=== PATIENT | female | born 1930 | race American Indian/Alaskan Native ===

== ENCOUNTER 2017-02-22 04:41 | Inpatient (IN) | payer MEDICARE ==
[2017-02-22 05:28] LABS: Basophils % (Auto) 0.7 % (0.0-1.8); Hematocrit 46.9 % (30.3-42.9); Hemoglobin 15.8 gm/dl (10.1-14.3); Mean Corpuscular HGB Conc 34 % (30-34); Mean Corpuscular Hemoglobin 30 pg (28-32); Mean Corpuscular Volume 90 fl (79-97); Platelet Count 259 K/mm3 (140-440); Red Cell Distribution Width 14.2 % (13.2-15.2); White Blood Count 4.4 K/mm3 (4.5-11.0)
[2017-02-22 06:03] LABS: Alanine Aminotransferase 8 units/L (7-56); Albumin 4.1 g/dL (3.9-5); Albumin/Globulin Ratio 1.2 %; Alkaline Phosphatase 71 units/L (35-129); Anion Gap 20 mmol/L; BUN/Creatinine Ratio 31.66; Blood Urea Nitrogen 19 mg/dL (7-17); Calcium 9.4 mg/dL (8.4-10.2); Carbon Dioxide 22 mmol/L (22-30); Chloride 100.3 mmol/L (98-107); Glucose 111 mg/dL (65-100); Potassium 3.5 mmol/L (3.6-5.0); Sodium 139 mmol/L (137-145); Total Protein 7.4 g/dL (6.3-8.2)
[2017-02-22 06:08] LABS: Urine Drugs of Abuse Note Disclamer
[2017-02-22 06:17] LABS: Bacteria,Urine 1+ /HPF (Negative); Bilirubin,Urine NEG (Negative); Blood,Urine SM (Negative); Ketones,Urine TR mg/dL (Negative); Leukocyte Esterase,Urine NEG (Negative); Mucus,Urine 2+ /HPF; Nitrite,Urine NEG (Negative); Urobilinogen,Urine < 2.0 mg/dL (<2.0)
--- NOTE | 2017-02-22 07:21 | Emergency Department Report ---
ED Altered Mental Status HPI - General Chief Complaint: Altered Mental Status Stated Complaint: AMS Time Seen by Provider: 02/22/17 07:17 Source: patient, EMS Mode of arrival: Stretcher Limitations: Altered Mental Status - History of Present Illness Initial Comments: The patient is quite delusional but pleasant enough during my encounter. She tells me a bit flippantly that she "trained the crypts and the bloods". She states he is from [place] which would make some sense in the delusional scheme. 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 She states she knows she is in [place]. She knows her name. She appears to be reasonably oriented for her age. She speaks quite coherently. The more you discuss her history the more delusional content he will likely receive. Nurses tell me that she was transported from home by EMS last night. They state they have no additional information. I do not have her trip sheet. Nurses state that she was not transported from a longterm. They also state that they have tried to contact the patient's family unsuccessfully. The patient offers no specific complaint. As per previous records the patient has aortic stenosis. She was admitted 12/16 for evaluation thereof by [facility]. I did not see a mention of dementia in her discharge summary. MD Complaint: confusion, other -: unknown Severity: moderate, severe Consistency of Symptoms: unknown Associated Symptoms: denies other symptoms - Related Data Home Medications Medication Instructions Recorded Confirmed Last Taken Unobtainable 02/22/17 02/22/17 Unknown Allergies Allergy/AdvReac Type Severity Reaction Status Date / Time No Known Allergies Allergy Verified 12/03/15 12:40 ED Review of Systems ROS: Stated complaint: AMS Other details as noted in HPI Constitutional: denies: chills, fever Eyes: denies: eye pain, eye discharge, vision change ENT: denies: ear pain, throat pain Respiratory: no symptoms reported. denies: shortness of breath Cardiovascular: denies: chest pain, palpitations Endocrine: no symptoms reported Gastrointestinal: denies: abdominal pain, nausea, diarrhea Genitourinary: denies: urgency, dysuria, discharge Musculoskeletal: denies: back pain, joint swelling, arthralgia Skin: denies: rash, lesions Neurological: denies: headache, weakness, paresthesias Psychiatric: denies: anxiety, depression Hematological/Lymphatic: denies: easy bleeding, easy bruising ED Past Medical Hx - Past Medical History Hx Hypertension: Yes Hx CVA: No Hx Heart Attack/AMI: No Hx Congestive Heart Failure: No Hx Diabetes: No Hx Deep Vein Thrombosis: No Hx Pulmonary Embolism: No Hx GERD: No Hx Liver Disease: No Hx Renal Disease: No Hx Sickle Cell Disease: No Hx Arthritis: Yes Hx Headaches / Migraines: No Hx Seizures: No Hx Kidney Stones: No Hx Psychiatric Treatment: No Hx Asthma: No Hx COPD: No Hx Tuberculosis: No Hx Dementia: Yes (Alzheimer's) Hx HIV: No - Surgical History Past Surgical History?: Yes Hx Coronary Stent: No Hx Open Heart Surgery: No Hx Pacemaker: No Hx Internal Defibrillator: No Hx Cholecystectomy: No Hx Appendectomy: Yes Hx Breast Surgery: No Additional Surgical History: eye surgery in [place] - Social History Smoking Status: Unknown if ever smoked - Medications Home Medications: Home Medications Medication Instructions Recorded Confirmed Last Taken Type Unobtainable 02/22/17 02/22/17 Unknown History ED Physical Exam - General Limitations: Altered Mental Status (delusional) General appearance: alert, in no apparent distress, other (well appearing) - Head Head exam: Present: atraumatic, normocephalic - Eye Eye exam: Present: normal appearance, PERRL, EOMI. Absent: scleral icterus - ENT ENT exam: Present: mucous membranes moist - Neck Neck exam: Present: normal inspection. Absent: tenderness, meningismus - Respiratory Respiratory exam: Present: normal lung sounds bilaterally. Absent: respiratory distress - Cardiovascular Cardiovascular Exam: Present: regular rate, normal rhythm. Absent: systolic murmur, diastolic murmur, rubs, gallop - GI/Abdominal GI/Abdominal exam: Present: soft, normal bowel sounds. Absent: distended, tenderness, guarding, rebound, rigid - Extremities Exam Extremities exam: Present: normal inspection - Back Exam Back exam: Present: normal inspection. Absent: CVA tenderness (R), CVA tenderness (L), paraspinal tenderness, vertebral tenderness - Neurological Exam Neurological exam: Present: alert, oriented X3, CN II-XII intact. Absent: motor sensory deficit - Psychiatric Psychiatric exam: Present: normal affect, normal mood - Skin Skin exam: Present: warm, dry, intact, normal color. Absent: rash - Assessment Assessment Interval: Baseline - Level of Consciousness 1a. Level of Consciousness: alert - LOC Questions 1b. LOC Questions: answers correctly - LOC Command 1c. LOC Commands: performs tasks correctly - Best Gaze 2. Best Gaze: normal - Visual 3. Visual: no visual loss - Facial Palsy 4. Facial Palsy: normal symmetrical movement - Motor Arm 5b. Motor Arm Right: no drift 5a. Motor Arm Left: no drift - Motor Leg 6a. Motor Leg Left: no drift 6b. Motor Leg Right: no drift - Limb Ataxia 7. Limb Ataxia: absent - Sensory 8. Sensory: normal - Best Language 9. Best Language: no aphasia - Dysarthria 10. Dysarthria: normal - Extinction and Inattention 11. Extinction/Inattention: no abnormality - Scoring Total Score: 0 Stroke Severity: No Stroke Symptoms ED Course Vital Signs 02/22/17 02/22/17 02/22/17 04:53 05:01 05:30 Temperature 98.2 F Pulse Rate 99 H 101 H Respiratory 18 18 18 Rate Blood Pressure 192/100 Blood Pressure 171/103 [Right] O2 Sat by Pulse 96 96 95 Oximetry 02/22/17 02/22/17 06:35 08:00 Temperature Pulse Rate 89 89 Respiratory 19 Rate Blood Pressure 194/109 Blood Pressure 158/95 [Right] O2 Sat by Pulse 96 Oximetry - Lab Data Result diagrams: 02/22/17 05:15 02/22/17 05:15 Lab Results 02/22/17 02/22/17 02/22/17 Range/Units 05:15 05:15 05:15 WBC 4.4 L (4.5-11.0) K/mm3 RBC 5.20 H (3.65-5.03) M/mm3 Hgb 15.8 H (10.1-14.3) gm/dl Hct 46.9 H (30.3-42.9) % MCV 90 (79-97) fl MCH 30 (28-32) pg MCHC 34 (30-34) % RDW 14.2 (13.2-15.2) % Plt Count 259 (140-440) K/mm3 Lymph % (Auto) 28.2 (13.4-35.0) % [place] % (Auto) 8.8 H (0.0-7.3) % Eos % (Auto) 1.0 (0.0-4.3) % Baso % (Auto) 0.7 (0.0-1.8) % Lymph # 1.2 (1.2-5.4) K/mm3 [place] # 0.4 (0.0-0.8) K/mm3 Eos # 0.0 (0.0-0.4) K/mm3 Baso # 0.0 (0.0-0.1) K/mm3 Seg Neutrophils % 61.3 (40.0-70.0) % Seg Neutrophils # 2.7 (1.8-7.7) K/mm3 Sodium 139 (137-145) mmol/L Potassium 3.5 L (3.6-5.0) mmol/L Chloride 100.3 (98-107) mmol/L Carbon Dioxide 22 (22-30) mmol/L Anion Gap 20 mmol/L BUN 19 H (7-17) mg/dL Creatinine 0.6 L (0.7-1.2) mg/dL Estimated GFR > 60 ml/min BUN/Creatinine Ratio 31.66 % Glucose 111 H (65-100) mg/dL Lactic Acid 1.40 (0.7-2.0) mmol/L Calcium 9.4 (8.4-10.2) mg/dL Magnesium 2.00 (1.7-2.3) mg/dL Total Bilirubin 0.70 (0.1-1.2) mg/dL AST 18 (5-40) units/L ALT 8 (7-56) units/L Alkaline Phosphatase 71 (35-129) units/L Total Protein 7.4 (6.3-8.2) g/dL Albumin 4.1 (3.9-5) g/dL Albumin/Globulin Ratio 1.2 % TSH (0.270-4.200) mlU/mL Urine Color (Yellow) Urine Turbidity (Clear) Urine pH (5.0-7.0) Ur Specific [place] (1.003-1.030) Urine Protein (Negative) mg/dL Urine Glucose (UA) (Negative) mg/dL Urine Ketones (Negative) mg/dL Urine Blood (Negative) Urine Nitrite (Negative) Urine Bilirubin (Negative) Urine Urobilinogen (<2.0) mg/dL Ur Leukocyte Esterase (Negative) Urine WBC (Auto) (0.0-6.0) /HPF Urine RBC (Auto) (0.0-6.0) /HPF U Epithel Cells (Auto) (0-13.0) /HPF Urine Bacteria (Auto) (Negative) /HPF Urine Mucus /HPF Salicylates (2.8-20.0) mg/dL Urine Opiates Screen Urine Methadone Screen Acetaminophen (10.0-30.0) ug/mL Ur Barbiturates Screen Ur Phencyclidine Scrn Ur Amphetamines Screen U Benzodiazepines Scrn Urine Cocaine Screen U Marijuana (THC) Screen Drugs of Abuse Note Plasma/Serum Alcohol (0-0.07) gm% 02/22/17 02/22/17 02/22/17 Range/Units 05:15 05:15 05:15 WBC (4.5-11.0) K/mm3 RBC (3.65-5.03) M/mm3 Hgb (10.1-14.3) gm/dl Hct (30.3-42.9) % MCV (79-97) fl MCH (28-32) pg MCHC (30-34) % RDW (13.2-15.2) % Plt Count (140-440) K/mm3 Lymph % (Auto) (13.4-35.0) % [place] % (Auto) (0.0-7.3) % Eos % (Auto) (0.0-4.3) % Baso % (Auto) (0.0-1.8) % Lymph # (1.2-5.4) K/mm3 [place] # (0.0-0.8) K/mm3 Eos # (0.0-0.4) K/mm3 Baso # (0.0-0.1) K/mm3 Seg Neutrophils % (40.0-70.0) % Seg Neutrophils # (1.8-7.7) K/mm3 Sodium (137-145) mmol/L Potassium (3.6-5.0) mmol/L Chloride (98-107) mmol/L Carbon Dioxide (22-30) mmol/L Anion Gap mmol/L BUN (7-17) mg/dL Creatinine (0.7-1.2) mg/dL Estimated GFR ml/min BUN/Creatinine Ratio % Glucose (65-100) mg/dL Lactic Acid (0.7-2.0) mmol/L Calcium (8.4-10.2) mg/dL Magnesium (1.7-2.3) mg/dL Total Bilirubin (0.1-1.2) mg/dL AST (5-40) units/L ALT (7-56) units/L Alkaline Phosphatase (35-129) units/L Total Protein (6.3-8.2) g/dL Albumin (3.9-5) g/dL Albumin/Globulin Ratio % TSH 0.420 (0.270-4.200) mlU/mL Urine Color (Yellow) Urine Turbidity (Clear) Urine pH (5.0-7.0) Ur Specific [place] (1.003-1.030) Urine Protein (Negative) mg/dL Urine Glucose (UA) (Negative) mg/dL Urine Ketones (Negative) mg/dL Urine Blood (Negative) Urine Nitrite (Negative) Urine Bilirubin (Negative) Urine Urobilinogen (<2.0) mg/dL Ur Leukocyte Esterase (Negative) Urine WBC (Auto) (0.0-6.0) /HPF Urine RBC (Auto) (0.0-6.0) /HPF U Epithel Cells (Auto) (0-13.0) /HPF Urine Bacteria (Auto) (Negative) /HPF Urine Mucus /HPF Salicylates < 0.3 L (2.8-20.0) mg/dL Urine Opiates Screen Urine Methadone Screen Acetaminophen < 15.0 (10.0-30.0) ug/mL Ur Barbiturates Screen Ur Phencyclidine Scrn Ur Amphetamines Screen U Benzodiazepines Scrn Urine Cocaine Screen U Marijuana (THC) Screen Drugs of Abuse Note Plasma/Serum Alcohol (0-0.07) gm% 02/22/17 02/22/17 02/22/17 Range/Units 05:15 06:00 06:00 WBC (4.5-11.0) K/mm3 RBC (3.65-5.03) M/mm3 Hgb (10.1-14.3) gm/dl Hct (30.3-42.9) % MCV (79-97) fl MCH (28-32) pg MCHC (30-34) % RDW (13.2-15.2) % Plt Count (140-440) K/mm3 Lymph % (Auto) (13.4-35.0) % [place] % (Auto) (0.0-7.3) % Eos % (Auto) (0.0-4.3) % Baso % (Auto) (0.0-1.8) % Lymph # (1.2-5.4) K/mm3 [place] # (0.0-0.8) K/mm3 Eos # (0.0-0.4) K/mm3 Baso # (0.0-0.1) K/mm3 Seg Neutrophils % (40.0-70.0) % Seg Neutrophils # (1.8-7.7) K/mm3 Sodium (137-145) mmol/L Potassium (3.6-5.0) mmol/L Chloride (98-107) mmol/L Carbon Dioxide (22-30) mmol/L Anion Gap mmol/L BUN (7-17) mg/dL Creatinine (0.7-1.2) mg/dL Estimated GFR ml/min BUN/Creatinine Ratio % Glucose (65-100) mg/dL Lactic Acid (0.7-2.0) mmol/L Calcium (8.4-10.2) mg/dL Magnesium (1.7-2.3) mg/dL Total Bilirubin (0.1-1.2) mg/dL AST (5-40) units/L ALT (7-56) units/L Alkaline Phosphatase (35-129) units/L Total Protein (6.3-8.2) g/dL Albumin (3.9-5) g/dL Albumin/Globulin Ratio % TSH (0.270-4.200) mlU/mL Urine Color Yellow (Yellow) Urine Turbidity Clear (Clear) Urine pH 5.0 (5.0-7.0) Ur Specific [place] 1.023 (1.003-1.030) Urine Protein 100 mg/dl (Negative) mg/dL Urine Glucose (UA) 50 (Negative) mg/dL Urine Ketones Tr (Negative) mg/dL Urine Blood Sm (Negative) Urine Nitrite Neg (Negative) Urine Bilirubin Neg (Negative) Urine Urobilinogen < 2.0 (<2.0) mg/dL Ur Leukocyte Esterase Neg (Negative) Urine WBC (Auto) 4.0 (0.0-6.0) /HPF Urine RBC (Auto) 3.0 (0.0-6.0) /HPF U Epithel Cells (Auto) < 1.0 (0-13.0) /HPF Urine Bacteria (Auto) 1+ (Negative) /HPF Urine Mucus 2+ /HPF Salicylates (2.8-20.0) mg/dL Urine Opiates Screen Presumptive negative Urine Methadone Screen Presumptive negative Acetaminophen (10.0-30.0) ug/mL Ur Barbiturates Screen Presumptive negative Ur Phencyclidine Scrn Presumptive negative Ur Amphetamines Screen Presumptive negative U Benzodiazepines Scrn Presumptive negative Urine Cocaine Screen Presumptive negative U Marijuana (THC) Screen Presumptive negative Drugs of Abuse Note Disclamer Plasma/Serum Alcohol < 0.01 (0-0.07) gm% - EKG Data -: EKG Interpreted by Me EKG shows normal: sinus rhythm Interpretation: LVH, other (moderately frequent PACs and PVCs no acute ischemic changes repolarization abnormality attributable to LVH) - Radiology Data interpreted by me: CT the head no acute process. Chest x-ray shows a new cardiac stent Critical care attestation.: If time is entered above; I have spent that time in minutes in the direct care of this critically ill patient, excluding procedure time. ED Disposition Clinical Impression: Uncontrolled hypertension, Ventricular ectopy Aortic stenosis Qualifiers: Cardiac valve disease etiology: etiology unspecified Qualified Code(s): I35.0 - Nonrheumatic aortic (valve) stenosis Altered mental status Qualifiers: Altered mental status type: unspecified Qualified Code(s): R41.82 - Altered mental status, unspecified Dementia Qualifiers: Dementia type: unspecified type Dementia behavioral disturbance: with behavioral disturbance Qualified Code(s): F03.91 - Unspecified dementia with behavioral disturbance Disposition: DC-09 OP ADMIT IP TO THIS HOSP Is pt being admited?: Yes Does the pt Need Aspirin: Yes Condition: Stable Instructions: Hypertension (ED) Referrals: PRIMARY CARE, [Primary Care Provider] - 3-5 Days Time of Disposition: 09:01
[2017-02-22] MEDS ORDERED: NORMODYNE IV ONE (07:26)
--- NOTE | 2017-02-22 08:10 | Cat Scan Report ---
CT HEAD WITHOUT CONTRAST: HISTORY: Altered mental status. Compared to 12/03/15. Mild chronic white matter changes are again noted. There is a 3.6 x 1.6 cm area of encephalomalacia in the left subfrontal region on image 13, series 2. This is also unchanged and probably represents a chronic ischemic insult or related to chronic trauma. There is no evidence for hemorrhage, mass or extra-axial fluid collection. Ventricular size remains within normal limits. The posterior fossa and contents are unremarkable. A single right posterior ethmoid air cell is nearly opacified. The remaining visualized sinuses and mastoid air cells are clear. IMPRESSION: Chronic findings as described above which are unchanged since 12/03/15. No acute intracranial process.
[2017-02-22] MEDS ORDERED: WATER FOR INJ (PF) 10 ML ONE (08:27)
[2017-02-22] MEDS ORDERED: GEODON IM ONE (08:27)
--- NOTE | 2017-02-22 08:43 | XRay Report ---
PORTABLE CHEST INDICATION: Hypertension. COMPARISON: 01/28/2010 FINDINGS: Portable, frontal chest radiograph demonstrates normal cardiomediastinal silhouette. Aortic atherosclerotic calcifications with subtle soft tissue density/thickness measuring up to 6 mm noted adjacent to the aortic knob, nonspecific though with a similar appearance in 2010. A new 5.5 x 2.5 cm stent overlies the heart and the spine in the midline, questionably along the outflow tract. Right hemidiaphragm again slightly elevated. Stable right axillary/chest wall surgical clips. Clear lungs without pleural effusions or CHF. Demineralized bones with various degenerative changes. EKG leads. Mild rightward tracheal deviation with possible left thyroid enlargement/mass. CONCLUSION: Interval midline possible cardiac stent with various other stable findings, as above. Please correlate clinically as also with relevant chest CT imaging, if available. Thank you for the opportunity to participate in this patient's care.
[2017-02-22] MEDS ORDERED: BABY ASPIRIN PO ONE (09:08)
--- NOTE | 2017-02-22 09:53 | Admit Criteria Form ---
Admission Criteria Documentation: HYPERTENSION Clinical Indications for Admission to Inpatient Care ( manzanita/check or initial the applicable condition/criteria) Admission is indicated for 1 or more of the following(1)(2)(3)(4)(5)(6)(7)(8)(9) (10): [ ]I. Hypertensive emergency, with evidence of acute and progressing target organ disease as indicated by 1 or more of the following: [ ]a) Hypertensive encephalopathy (e.g., confusion, altered mental status) (11) [ ]b) Cerebral infarction [ ]c) Intracranial hemorrhage [ ]d) Myocardial ischemia or infarction [ ]e) Heart failure (eg. Pulmonary edema) [ ]f) Aortic dissection [ ]g) Increased creatinine (new) with reduction of more than 50% in estimated glomerular filtration rate from baseline [ ]h) Seizure [ ]i) Papilledema [ ]j) Retinal hemorrhage [ ]k) Microangiopathic hemolytic anemia [ ]l) Other significant finding secondary to hypertension [ ]II. Adrenergic or sympathomimetic crisis (e.g., severe hypertension due to pheochromocytoma crisis, cocaine, phencyclindine, or amphetamine intoxication, or clonidine withdrawal) [X]III. Severe hypertension (SBP greater than 180 mmHg or DBP greater than 110 mmHg or greater than the 95th percentile for age, gender, and height in pediatric patients) that cannot be controlled (e.g., to SBP less than 160 mmHg and DBP less than 100 mmHg in adults) by treatment with oral medication in emergency department or observation care (12) Extended stay beyond goal length of staymay be needed for(21)(22): [ ]a) Persistent hypertensive encephalopathy [ ]b) Continuation of pulmonary edema [ ]c) Recurring or persistent severe hypertension [ ]d) Target organ damage (eg, angina, stroke, aortic dissection) The original [employer] content created by [employer] has been revised. The portions of the content which have been revised are identified through the use of italic text or in bold, and [employer] has neither reviewed nor approved the modified material. All other unmodified content is copyright [employer]. Please see references footnoted in the original [employer] edition 2016 Admission Criteria Met: Yes
[2017-02-22] MEDS ORDERED: TYLENOL PO PRN (10:00)
[2017-02-22] MEDS ORDERED: DULCOLAX PR PRN (10:00)
[2017-02-22] MEDS ORDERED: APRESOLINE IV PRN ×2 (10:00→12:11)
--- NOTE | 2017-02-22 10:04 | History and Physical Report ---
<LUDWIG AGUILERA - Last Filed: 02/22/17 13:29> History of Present Illness Date of examination: 02/22/17 Date of admission: 02/22/17 08:44 Chief complaint: Altered mental status History of present illness: Patient is a 86 year old -[place] African with past medical history hypertension , Alzheimer's, arthritis, and breast cancer who presents to the emergency department by EMS for altered mental status. Patient alert to person, delusional, hallucinating, therefor unable to obtain history. Per EMS her family called 911 for altered mental status, hallucinating and talking to self. I have tried to contact the patient's family or son without success. Patient history obtained from ER physician and charts. Past History Past Medical History: hypertension, other (Alzheimers, arthritis and breast cancer) Past Surgical History: appendectomy, Other (eye surgery) Medications and Allergies Allergies Allergy/AdvReac Type Severity Reaction Status Date / Time No Known Allergies Allergy Verified 12/03/15 12:40 Home Medications Medication Instructions Recorded Confirmed Last Taken Type Unobtainable 02/22/17 02/22/17 Unknown History Active Meds: Active Medications Acetaminophen (Tylenol) 650 mg PO Q4H PRN PRN Reason: Pain MILD(1-3)/Fever >100.5/PEREZ Bisacodyl (Dulcolax) 10 mg MO QDAY PRN PRN Reason: Constipation unrelieved by MOM Enoxaparin Sodium (Lovenox) 30 mg SUB-Q QDAY [facility] Hydralazine HCl (Apresoline) 10 mg IV Q4H PRN PRN Reason: SBP>160 Review of Systems ROS unobtainable: due to mental status (unable to assess ) Exam - Constitutional Vitals: Temp Pulse Resp BP Pulse Ox 98.2 F 89 19 194/109 96 02/22/17 04:53 02/22/17 08:00 02/22/17 06:35 02/22/17 08:00 02/22/17 06:35 General appearance: Present: other (altered mental status) - EENT Eyes: Present: PERRL - Neck Neck: Present: supple - Respiratory Respiratory effort: normal Respiratory: bilateral: CTA - Cardiovascular Heart rate: 92 Rhythm: regular Heart Sounds: Present: S1 & S2 - Extremities Extremities: no ischemia Peripheral Pulses: within normal limits - Abdominal General gastrointestinal: Present: soft, non-tender Female genitourinary: Present: deferred - Rectal Rectal Exam: deferred - Integumentary Integumentary: Present: clear, warm, dry - Musculoskeletal Musculoskeletal: strength equal bilaterally - Psychiatric Psychiatric: appropriate mood/affect - Allied Health Allied health notes reviewed: nursing Results - Labs CBC & Chem 7: 02/22/17 05:15 02/22/17 05:15 Labs: Laboratory Last Values WBC 4.4 K/mm3 (4.5-11.0) L 02/22/17 05:15 RBC 5.20 M/mm3 (3.65-5.03) H 02/22/17 05:15 Hgb 15.8 gm/dl (10.1-14.3) H 02/22/17 05:15 Hct 46.9 % (30.3-42.9) H 02/22/17 05:15 MCV 90 fl (79-97) 02/22/17 05:15 MCH 30 pg (28-32) 02/22/17 05:15 MCHC 34 % (30-34) 02/22/17 05:15 RDW 14.2 % (13.2-15.2) 02/22/17 05:15 Plt Count 259 K/mm3 (140-440) 02/22/17 05:15 Lymph % (Auto) 28.2 % (13.4-35.0) 02/22/17 05:15 Stark % (Auto) 8.8 % (0.0-7.3) H 02/22/17 05:15 Eos % (Auto) 1.0 % (0.0-4.3) 02/22/17 05:15 Baso % (Auto) 0.7 % (0.0-1.8) 02/22/17 05:15 Lymph # 1.2 K/mm3 (1.2-5.4) 02/22/17 05:15 Stark # 0.4 K/mm3 (0.0-0.8) 02/22/17 05:15 Eos # 0.0 K/mm3 (0.0-0.4) 02/22/17 05:15 Baso # 0.0 K/mm3 (0.0-0.1) 02/22/17 05:15 Seg Neutrophils % 61.3 % (40.0-70.0) 02/22/17 05:15 Seg Neutrophils # 2.7 K/mm3 (1.8-7.7) 02/22/17 05:15 Sodium 139 mmol/L (137-145) 02/22/17 05:15 Potassium 3.5 mmol/L (3.6-5.0) L 02/22/17 05:15 Chloride 100.3 mmol/L (98-107) 02/22/17 05:15 Carbon Dioxide 22 mmol/L (22-30) 02/22/17 05:15 Anion Gap 20 mmol/L 02/22/17 05:15 BUN 19 mg/dL (7-17) H 02/22/17 05:15 Creatinine 0.6 mg/dL (0.7-1.2) L 02/22/17 05:15 Estimated GFR > 60 ml/min 02/22/17 05:15 BUN/Creatinine Ratio 31.66 % 02/22/17 05:15 Glucose 111 mg/dL (65-100) H 02/22/17 05:15 Lactic Acid 1.40 mmol/L (0.7-2.0) 02/22/17 05:15 Calcium 9.4 mg/dL (8.4-10.2) 02/22/17 05:15 Magnesium 2.00 mg/dL (1.7-2.3) 02/22/17 05:15 Total Bilirubin 0.70 mg/dL (0.1-1.2) 02/22/17 05:15 AST 18 units/L (5-40) 02/22/17 05:15 ALT 8 units/L (7-56) 02/22/17 05:15 Alkaline Phosphatase 71 units/L (35-129) 02/22/17 05:15 Total Protein 7.4 g/dL (6.3-8.2) 02/22/17 05:15 Albumin 4.1 g/dL (3.9-5) 02/22/17 05:15 Albumin/Globulin Ratio 1.2 % 02/22/17 05:15 TSH 0.420 mlU/mL (0.270-4.200) 02/22/17 05:15 Urine Color Yellow (Yellow) 02/22/17 06:00 Urine Turbidity Clear (Clear) 02/22/17 06:00 Urine pH 5.0 (5.0-7.0) 02/22/17 06:00 Ur Specific [place] 1.023 (1.003-1.030) 02/22/17 06:00 Urine Protein 100 mg/dl mg/dL (Negative) 02/22/17 06:00 Urine Glucose (UA) 50 mg/dL (Negative) 02/22/17 06:00 Urine Ketones Tr mg/dL (Negative) 02/22/17 06:00 Urine Blood Sm (Negative) 02/22/17 06:00 Urine Nitrite Neg (Negative) 02/22/17 06:00 Urine Bilirubin Neg (Negative) 02/22/17 06:00 Urine Urobilinogen < 2.0 mg/dL (<2.0) 02/22/17 06:00 Ur Leukocyte Esterase Neg (Negative) 02/22/17 06:00 Urine WBC (Auto) 4.0 /HPF (0.0-6.0) 02/22/17 06:00 Urine RBC (Auto) 3.0 /HPF (0.0-6.0) 02/22/17 06:00 U Epithel Cells (Auto) < 1.0 /HPF (0-13.0) 02/22/17 06:00 Urine Bacteria (Auto) 1+ /HPF (Negative) 02/22/17 06:00 Urine Mucus 2+ /HPF 02/22/17 06:00 Salicylates < 0.3 mg/dL (2.8-20.0) L 02/22/17 05:15 Urine Opiates Screen Presumptive negative 02/22/17 06:00 Urine Methadone Screen Presumptive negative 02/22/17 06:00 Acetaminophen < 15.0 ug/mL (10.0-30.0) 02/22/17 05:15 Ur Barbiturates Screen Presumptive negative 02/22/17 06:00 Ur Phencyclidine Scrn Presumptive negative 02/22/17 06:00 Ur Amphetamines Screen Presumptive negative 02/22/17 06:00 U Benzodiazepines Scrn Presumptive negative 02/22/17 06:00 Urine Cocaine Screen Presumptive negative 02/22/17 06:00 U Marijuana (THC) Screen Presumptive negative 02/22/17 06:00 Drugs of Abuse Note Disclamer 02/22/17 06:00 Plasma/Serum Alcohol < 0.01 gm% (0-0.07) 02/22/17 05:15 Assessment and Plan Assessment and plan: Acute encephalopathy Etiology unknown Most likely due to progressively worsening Alzheimer's Normal CT of the head MRI of the brain ordered Accelerated hypertension Resume home antihypertensive medicine in addition started on carvedilol 12 mg by mouth twice a day Started on IV hydralazine for SBP>160 Closely monitor blood pressure Hypokalemia Replaced Closely monitor electrolytes SNF placement Case management consult DVT prophylaxis Lovenox Advance Directives: Yes (Full Code) Contraindication Mechanical VTE Prophylaxis: Treatment Not Indicated Plan of care discussed with patient/family: Yes <YOSVANY HESS - Last Filed: 02/22/17 18:56> History of Present Illness Date of admission: 02/22/17 08:44 Medications and Allergies Active Meds: Active Medications Acetaminophen (Tylenol) 650 mg PO Q4H PRN PRN Reason: Pain MILD(1-3)/Fever >100.5/PEREZ Bisacodyl (Dulcolax) 10 mg MO QDAY PRN PRN Reason: Constipation unrelieved by MOM Carvedilol (Coreg) 12.5 mg PO BID [facility] Last Admin: 02/22/17 13:57 Dose: 12.5 mg Enoxaparin Sodium (Lovenox) 30 mg SUB-Q QDAY [facility] Last Admin: 02/22/17 11:15 Dose: 30 mg Hydralazine HCl (Apresoline) 20 mg IV Q6H PRN PRN Reason: SBP>160 Sodium Chloride (Nacl 0.9% 1000 Ml) 1,000 mls @ 999 mls/hr IV BOLUS ONE Stop: 02/22/17 20:00 Lisinopril (Zestril) 20 mg PO QDAY [facility] Exam - Constitutional Vitals: Temp Pulse Resp BP Pulse Ox 98.3 F 103 H 18 155/90 97 02/22/17 10:12 02/22/17 13:57 02/22/17 10:12 02/22/17 13:57 02/22/17 10:12 General appearance: Present: no acute distress, well-nourished - Respiratory Respiratory: bilateral: CTA - Cardiovascular Rhythm: regular Heart Sounds: Present: S1 & S2 - Extremities Extremities: no ischemia, pulses intact, pulses symmetrical, No edema, normal temperature - Abdominal General gastrointestinal: Present: soft, non-tender - Integumentary Integumentary: Present: clear, warm Results - Labs CBC & Chem 7: 02/22/17 05:15 02/22/17 05:15 Labs: Laboratory Last Values WBC 4.4 K/mm3 (4.5-11.0) L 02/22/17 05:15 RBC 5.20 M/mm3 (3.65-5.03) H 02/22/17 05:15 Hgb 15.8 gm/dl (10.1-14.3) H 02/22/17 05:15 Hct 46.9 % (30.3-42.9) H 02/22/17 05:15 MCV 90 fl (79-97) 02/22/17 05:15 MCH 30 pg (28-32) 02/22/17 05:15 MCHC 34 % (30-34) 02/22/17 05:15 RDW 14.2 % (13.2-15.2) 02/22/17 05:15 Plt Count 259 K/mm3 (140-440) 02/22/17 05:15 Lymph % (Auto) 28.2 % (13.4-35.0) 02/22/17 05:15 Stark % (Auto) 8.8 % (0.0-7.3) H 02/22/17 05:15 Eos % (Auto) 1.0 % (0.0-4.3) 02/22/17 05:15 Baso % (Auto) 0.7 % (0.0-1.8) 02/22/17 05:15 Lymph # 1.2 K/mm3 (1.2-5.4) 02/22/17 05:15 Stark # 0.4 K/mm3 (0.0-0.8) 02/22/17 05:15 Eos # 0.0 K/mm3 (0.0-0.4) 02/22/17 05:15 Baso # 0.0 K/mm3 (0.0-0.1) 02/22/17 05:15 Seg Neutrophils % 61.3 % (40.0-70.0) 02/22/17 05:15 Seg Neutrophils # 2.7 K/mm3 (1.8-7.7) 02/22/17 05:15 POC ABG pH 7.421 (7.35-7.45) 02/22/17 18:07 POC ABG pCO2 37.4 (35-45) 02/22/17 18:07 POC ABG pO2 238 (80-105) H 02/22/17 18:07 POC ABG HCO3 24.4 02/22/17 18:07 POC ABG Total CO2 25 02/22/17 18:07 POC ABG O2 Sat 100 02/22/17 18:07 POC ABG Base Excess 0 02/22/17 18:07 FiO2 50 % 02/22/17 18:07 Sodium 139 mmol/L (137-145) 02/22/17 05:15 Potassium 3.5 mmol/L (3.6-5.0) L 02/22/17 05:15 Chloride 100.3 mmol/L (98-107) 02/22/17 05:15 Carbon Dioxide 22 mmol/L (22-30) 02/22/17 05:15 Anion Gap 20 mmol/L 02/22/17 05:15 BUN 19 mg/dL (7-17) H 02/22/17 05:15 Creatinine 0.6 mg/dL (0.7-1.2) L 02/22/17 05:15 Estimated GFR > 60 ml/min 02/22/17 05:15 BUN/Creatinine Ratio 31.66 % 02/22/17 05:15 Glucose 111 mg/dL (65-100) H 02/22/17 05:15 POC Glucose 129 (70-105) H 02/22/17 17:57 Lactic Acid 1.40 mmol/L (0.7-2.0) 02/22/17 05:15 Calcium 9.4 mg/dL (8.4-10.2) 02/22/17 05:15 Magnesium 2.00 mg/dL (1.7-2.3) 02/22/17 05:15 Total Bilirubin 0.70 mg/dL (0.1-1.2) 02/22/17 05:15 AST 18 units/L (5-40) 02/22/17 05:15 ALT 8 units/L (7-56) 02/22/17 05:15 Alkaline Phosphatase 71 units/L (35-129) 02/22/17 05:15 Total Protein 7.4 g/dL (6.3-8.2) 02/22/17 05:15 Albumin 4.1 g/dL (3.9-5) 02/22/17 05:15 Albumin/Globulin Ratio 1.2 % 02/22/17 05:15 TSH 0.420 mlU/mL (0.270-4.200) 02/22/17 05:15 Urine Color Yellow (Yellow) 02/22/17 06:00 Urine Turbidity Clear (Clear) 02/22/17 06:00 Urine pH 5.0 (5.0-7.0) 02/22/17 06:00 Ur Specific [place] 1.023 (1.003-1.030) 02/22/17 06:00 Urine Protein 100 mg/dl mg/dL (Negative) 02/22/17 06:00 Urine Glucose (UA) 50 mg/dL (Negative) 02/22/17 06:00 Urine Ketones Tr mg/dL (Negative) 02/22/17 06:00 Urine Blood Sm (Negative) 02/22/17 06:00 Urine Nitrite Neg (Negative) 02/22/17 06:00 Urine Bilirubin Neg (Negative) 02/22/17 06:00 Urine Urobilinogen < 2.0 mg/dL (<2.0) 02/22/17 06:00 Ur Leukocyte Esterase Neg (Negative) 02/22/17 06:00 Urine WBC (Auto) 4.0 /HPF (0.0-6.0) 02/22/17 06:00 Urine RBC (Auto) 3.0 /HPF (0.0-6.0) 02/22/17 06:00 U Epithel Cells (Auto) < 1.0 /HPF (0-13.0) 02/22/17 06:00 Urine Bacteria (Auto) 1+ /HPF (Negative) 02/22/17 06:00 Urine Mucus 2+ /HPF 02/22/17 06:00 Salicylates < 0.3 mg/dL (2.8-20.0) L 02/22/17 05:15 Urine Opiates Screen Presumptive negative 02/22/17 06:00 Urine Methadone Screen Presumptive negative 02/22/17 06:00 Acetaminophen < 15.0 ug/mL (10.0-30.0) 02/22/17 05:15 Ur Barbiturates Screen Presumptive negative 02/22/17 06:00 Ur Phencyclidine Scrn Presumptive negative 02/22/17 06:00 Ur Amphetamines Screen Presumptive negative 02/22/17 06:00 U Benzodiazepines Scrn Presumptive negative 02/22/17 06:00 Urine Cocaine Screen Presumptive negative 02/22/17 06:00 U Marijuana (THC) Screen Presumptive negative 02/22/17 06:00 Drugs of Abuse Note Disclamer 02/22/17 06:00 Plasma/Serum Alcohol < 0.01 gm% (0-0.07) 02/22/17 05:15 Assessment and Plan Assessment and plan: I saw and evaluated the patient. I agree with the findings and the plan of care as documented in the Nurse Practitioner's~note, with the following corrections and additions. Patient examined, EMS sheet reviewed, patient picked up from home. No records of medication noted. she is awake, conversant but does not recall meds. CT brain negative. attempt to call family, shows wrong number. will keep trying. monitor BP.
[2017-02-22] MEDS ORDERED: K-DUR PO ONE (11:00)
[2017-02-22] MEDS: LOVENOX SUB-Q SCH (11:15)
[2017-02-22] MEDS ORDERED: COREG PO SCH (12:00)
[2017-02-22 18:17] LABS: ISTAT Base Excess 0; ISTAT HCO3 24.4; ISTAT PCO2 37.4 (35-45); ISTAT PH 7.421 (7.35-7.45); ISTAT PO2 238 (80-105); ISTAT SO2 100; ISTAT TCO2 25
--- NOTE | 2017-02-22 18:58 | Event Note ---
Date: 02/22/17 Patient seen and examined. Code blue called as patient became unresponsive after standing and became diaphoretic, BP down to 114 systolic, no loss of pulse noted. CONDITION CORRECTED. ?Orthostatic BP drop. Will monitor on front desk monitor. ABG reviewed. patient now verbal and denies any chest pain. check orthostatic and if positive will give fluids. hold BP meds. The high probability of a clinically significant, sudden or life threatening deterioration of the [cardiovascular, neurology] system(s) required my full and direct attention, intervention and personal management. The aggregate critical care time was [35] minutes. This time is in addition to time spent performing reported procedures but includes the following: [x] Data Review and interpretation [x] Patient assessment and monitoring of vital signs [x] Documentation [x] Medication orders and management
[2017-02-22] MEDS ORDERED: NACL 0.9% 1000 ML 1,000 ML IV ONE (19:00)
[2017-02-23] MEDS ORDERED: NACL 0.9% 1000 ML 1,000 ML ONE (01:13)
[2017-02-23 04:29] LABS: Anion Gap 20 mmol/L; Blood Urea Nitrogen 15 mg/dL (7-17); Calcium 8.6 mg/dL (8.4-10.2); Carbon Dioxide 20 mmol/L (22-30); Chloride 105.3 mmol/L (98-107); Glucose 95 mg/dL (65-100); Potassium 4.2 mmol/L (3.6-5.0); Sodium 141 mmol/L (137-145)
[2017-02-23 04:30] LABS: Hematocrit 44.9 % (30.3-42.9); Hemoglobin 14.7 gm/dl (10.1-14.3); Mean Corpuscular HGB Conc 33 % (30-34); Mean Corpuscular Hemoglobin 30 pg (28-32); Mean Corpuscular Volume 91 fl (79-97); Platelet Count 245 K/mm3 (140-440); Red Blood Count 4.95 M/mm3 (3.65-5.03); Red Cell Distribution Width 14.3 % (13.2-15.2); White Blood Count 4.4 K/mm3 (4.5-11.0)
[2017-02-23 04:37] LABS: Basophils % (Auto) 0.9 % (0.0-1.8); Eosinophils % (Auto) 1.3 % (0.0-4.3)
[2017-02-23] MEDS: ZESTRIL PO SCH (09:38)
[2017-02-23] MEDS: LOVENOX SUB-Q SCH (09:39)
--- NOTE | 2017-02-23 13:09 | Progress Note ---
<WILLYLUDWIG - Last Filed: 02/23/17 13:12> Assessment and Plan Assessment and plan: Acute encephalopathy Etiology unknown Patient alert and oriented to person and place today, this might be here baseline. Most likely due to progressively worsening Alzheimer's Normal CT of the head MRI of the brain pending Accelerated hypertension Continue on home antihypertensive Started on IV hydralazine for SBP>160 Closely monitor blood pressure Hypokalemia Resolved SNF placement Case management consult DVT prophylaxis Lovenox History Interval history: Patient peasant, alert and oriented to person and place. I ask patient if she have contact number for her family but patient stated that she does not remember. Hospitalist Physical - Constitutional Vitals: Temp Pulse Resp BP Pulse Ox 97.8 F 74 20 174/81 98 02/23/17 09:42 02/23/17 09:42 02/23/17 09:42 02/23/17 09:42 02/23/17 08:17 General appearance: Present: no acute distress, well-nourished, other (patient, A.O.2, this might be patient's baseline ) - EENT Eyes: Present: PERRL ENT: hearing intact - Neck Neck: Present: supple - Respiratory Respiratory effort: normal Respiratory: bilateral: CTA - Cardiovascular Heart rate: 74 Rhythm: regular Heart Sounds: Present: S1 & S2 - Extremities Extremities: no ischemia Peripheral Pulses: within normal limits - Abdominal General gastrointestinal: soft, non-tender - Integumentary Integumentary: Present: clear, warm, dry - Psychiatric Psychiatric: appropriate mood/affect - Neurologic Neurologic: CNII-XII intact - Allied Health Allied health notes reviewed: nursing Results - Labs CBC & Chem 7: 02/23/17 03:46 02/23/17 03:46 Labs: Laboratory Last Values WBC 4.4 K/mm3 (4.5-11.0) L 02/23/17 03:46 RBC 4.95 M/mm3 (3.65-5.03) 02/23/17 03:46 Hgb 14.7 gm/dl (10.1-14.3) H 02/23/17 03:46 Hct 44.9 % (30.3-42.9) H 02/23/17 03:46 MCV 91 fl (79-97) 02/23/17 03:46 MCH 30 pg (28-32) 02/23/17 03:46 MCHC 33 % (30-34) 02/23/17 03:46 RDW 14.3 % (13.2-15.2) 02/23/17 03:46 Plt Count 245 K/mm3 (140-440) 02/23/17 03:46 Lymph % (Auto) 29.3 % (13.4-35.0) 02/23/17 03:46 Kaufman % (Auto) 10.5 % (0.0-7.3) H 02/23/17 03:46 Eos % (Auto) 1.3 % (0.0-4.3) 02/23/17 03:46 Baso % (Auto) 0.9 % (0.0-1.8) 02/23/17 03:46 Lymph # 1.3 K/mm3 (1.2-5.4) 02/23/17 03:46 Kaufman # 0.5 K/mm3 (0.0-0.8) 02/23/17 03:46 Eos # 0.1 K/mm3 (0.0-0.4) 02/23/17 03:46 Baso # 0.0 K/mm3 (0.0-0.1) 02/23/17 03:46 Seg Neutrophils % 58.0 % (40.0-70.0) 02/23/17 03:46 Seg Neutrophils # 2.6 K/mm3 (1.8-7.7) 02/23/17 03:46 POC ABG pH 7.421 (7.35-7.45) 02/22/17 18:07 POC ABG pCO2 37.4 (35-45) 02/22/17 18:07 POC ABG pO2 238 (80-105) H 02/22/17 18:07 POC ABG HCO3 24.4 02/22/17 18:07 POC ABG Total CO2 25 02/22/17 18:07 POC ABG O2 Sat 100 02/22/17 18:07 POC ABG Base Excess 0 02/22/17 18:07 FiO2 50 % 02/22/17 18:07 Sodium 141 mmol/L (137-145) 02/23/17 03:46 Potassium 4.2 mmol/L (3.6-5.0) 02/23/17 03:46 Chloride 105.3 mmol/L (98-107) 02/23/17 03:46 Carbon Dioxide 20 mmol/L (22-30) L 02/23/17 03:46 Anion Gap 20 mmol/L 02/23/17 03:46 BUN 15 mg/dL (7-17) 02/23/17 03:46 Creatinine 0.5 mg/dL (0.7-1.2) L 02/23/17 03:46 Estimated GFR > 60 ml/min 02/23/17 03:46 BUN/Creatinine Ratio 30.00 % 02/23/17 03:46 Glucose 95 mg/dL (65-100) 02/23/17 03:46 POC Glucose 129 (70-105) H 02/22/17 17:57 Lactic Acid 1.40 mmol/L (0.7-2.0) 02/22/17 05:15 Calcium 8.6 mg/dL (8.4-10.2) 02/23/17 03:46 Magnesium 2.00 mg/dL (1.7-2.3) 02/22/17 05:15 Total Bilirubin 0.70 mg/dL (0.1-1.2) 02/22/17 05:15 AST 18 units/L (5-40) 02/22/17 05:15 ALT 8 units/L (7-56) 02/22/17 05:15 Alkaline Phosphatase 71 units/L (35-129) 02/22/17 05:15 Total Protein 7.4 g/dL (6.3-8.2) 02/22/17 05:15 Albumin 4.1 g/dL (3.9-5) 02/22/17 05:15 Albumin/Globulin Ratio 1.2 % 02/22/17 05:15 TSH 0.420 mlU/mL (0.270-4.200) 02/22/17 05:15 Urine Color Yellow (Yellow) 02/22/17 06:00 Urine Turbidity Clear (Clear) 02/22/17 06:00 Urine pH 5.0 (5.0-7.0) 02/22/17 06:00 Ur Specific [place] 1.023 (1.003-1.030) 02/22/17 06:00 Urine Protein 100 mg/dl mg/dL (Negative) 02/22/17 06:00 Urine Glucose (UA) 50 mg/dL (Negative) 02/22/17 06:00 Urine Ketones Tr mg/dL (Negative) 02/22/17 06:00 Urine Blood Sm (Negative) 02/22/17 06:00 Urine Nitrite Neg (Negative) 02/22/17 06:00 Urine Bilirubin Neg (Negative) 02/22/17 06:00 Urine Urobilinogen < 2.0 mg/dL (<2.0) 02/22/17 06:00 Ur Leukocyte Esterase Neg (Negative) 02/22/17 06:00 Urine WBC (Auto) 4.0 /HPF (0.0-6.0) 02/22/17 06:00 Urine RBC (Auto) 3.0 /HPF (0.0-6.0) 02/22/17 06:00 U Epithel Cells (Auto) < 1.0 /HPF (0-13.0) 02/22/17 06:00 Urine Bacteria (Auto) 1+ /HPF (Negative) 02/22/17 06:00 Urine Mucus 2+ /HPF 02/22/17 06:00 Salicylates < 0.3 mg/dL (2.8-20.0) L 02/22/17 05:15 Urine Opiates Screen Presumptive negative 02/22/17 06:00 Urine Methadone Screen Presumptive negative 02/22/17 06:00 Acetaminophen < 15.0 ug/mL (10.0-30.0) 02/22/17 05:15 Ur Barbiturates Screen Presumptive negative 02/22/17 06:00 Ur Phencyclidine Scrn Presumptive negative 02/22/17 06:00 Ur Amphetamines Screen Presumptive negative 02/22/17 06:00 U Benzodiazepines Scrn Presumptive negative 02/22/17 06:00 Urine Cocaine Screen Presumptive negative 02/22/17 06:00 U Marijuana (THC) Screen Presumptive negative 02/22/17 06:00 Drugs of Abuse Note Disclamer 02/22/17 06:00 Plasma/Serum Alcohol < 0.01 gm% (0-0.07) 02/22/17 05:15 <YOSVANY HESS - Last Filed: 02/23/17 15:02> Assessment and Plan Assessment and plan: I saw and evaluated the patient. I agree with the findings and the plan of care as documented in the Nurse Practitioner's~note, with the following corrections and additions. Patient seen and examined, she is much improved today. still unable to contact family. mental status stable anticipate discharge in 24 hours if patient remains stable. Hospitalist Physical - Constitutional Vitals: Temp Pulse Resp BP Pulse Ox 97.8 F 74 20 174/81 98 02/23/17 09:42 02/23/17 09:42 02/23/17 09:42 02/23/17 09:42 02/23/17 08:17 Results - Labs CBC & Chem 7: 02/23/17 03:46 02/23/17 03:46 Labs: Laboratory Last Values WBC 4.4 K/mm3 (4.5-11.0) L 02/23/17 03:46 RBC 4.95 M/mm3 (3.65-5.03) 02/23/17 03:46 Hgb 14.7 gm/dl (10.1-14.3) H 02/23/17 03:46 Hct 44.9 % (30.3-42.9) H 02/23/17 03:46 MCV 91 fl (79-97) 02/23/17 03:46 MCH 30 pg (28-32) 02/23/17 03:46 MCHC 33 % (30-34) 02/23/17 03:46 RDW 14.3 % (13.2-15.2) 02/23/17 03:46 Plt Count 245 K/mm3 (140-440) 02/23/17 03:46 Lymph % (Auto) 29.3 % (13.4-35.0) 02/23/17 03:46 Kaufman % (Auto) 10.5 % (0.0-7.3) H 02/23/17 03:46 Eos % (Auto) 1.3 % (0.0-4.3) 02/23/17 03:46 Baso % (Auto) 0.9 % (0.0-1.8) 02/23/17 03:46 Lymph # 1.3 K/mm3 (1.2-5.4) 02/23/17 03:46 Kaufman # 0.5 K/mm3 (0.0-0.8) 02/23/17 03:46 Eos # 0.1 K/mm3 (0.0-0.4) 02/23/17 03:46 Baso # 0.0 K/mm3 (0.0-0.1) 02/23/17 03:46 Seg Neutrophils % 58.0 % (40.0-70.0) 02/23/17 03:46 Seg Neutrophils # 2.6 K/mm3 (1.8-7.7) 02/23/17 03:46 POC ABG pH 7.421 (7.35-7.45) 02/22/17 18:07 POC ABG pCO2 37.4 (35-45) 02/22/17 18:07 POC ABG pO2 238 (80-105) H 02/22/17 18:07 POC ABG HCO3 24.4 02/22/17 18:07 POC ABG Total CO2 25 02/22/17 18:07 POC ABG O2 Sat 100 02/22/17 18:07 POC ABG Base Excess 0 02/22/17 18:07 FiO2 50 % 02/22/17 18:07 Sodium 141 mmol/L (137-145) 02/23/17 03:46 Potassium 4.2 mmol/L (3.6-5.0) 02/23/17 03:46 Chloride 105.3 mmol/L (98-107) 02/23/17 03:46 Carbon Dioxide 20 mmol/L (22-30) L 02/23/17 03:46 Anion Gap 20 mmol/L 02/23/17 03:46 BUN 15 mg/dL (7-17) 02/23/17 03:46 Creatinine 0.5 mg/dL (0.7-1.2) L 02/23/17 03:46 Estimated GFR > 60 ml/min 02/23/17 03:46 BUN/Creatinine Ratio 30.00 % 02/23/17 03:46 Glucose 95 mg/dL (65-100) 02/23/17 03:46 POC Glucose 129 (70-105) H 02/22/17 17:57 Lactic Acid 1.40 mmol/L (0.7-2.0) 02/22/17 05:15 Calcium 8.6 mg/dL (8.4-10.2) 02/23/17 03:46 Magnesium 2.00 mg/dL (1.7-2.3) 02/22/17 05:15 Total Bilirubin 0.70 mg/dL (0.1-1.2) 02/22/17 05:15 AST 18 units/L (5-40) 02/22/17 05:15 ALT 8 units/L (7-56) 02/22/17 05:15 Alkaline Phosphatase 71 units/L (35-129) 02/22/17 05:15 Total Protein 7.4 g/dL (6.3-8.2) 02/22/17 05:15 Albumin 4.1 g/dL (3.9-5) 02/22/17 05:15 Albumin/Globulin Ratio 1.2 % 02/22/17 05:15 TSH 0.420 mlU/mL (0.270-4.200) 02/22/17 05:15 Urine Color Yellow (Yellow) 02/22/17 06:00 Urine Turbidity Clear (Clear) 02/22/17 06:00 Urine pH 5.0 (5.0-7.0) 02/22/17 06:00 Ur Specific [place] 1.023 (1.003-1.030) 02/22/17 06:00 Urine Protein 100 mg/dl mg/dL (Negative) 02/22/17 06:00 Urine Glucose (UA) 50 mg/dL (Negative) 02/22/17 06:00 Urine Ketones Tr mg/dL (Negative) 02/22/17 06:00 Urine Blood Sm (Negative) 02/22/17 06:00 Urine Nitrite Neg (Negative) 02/22/17 06:00 Urine Bilirubin Neg (Negative) 02/22/17 06:00 Urine Urobilinogen < 2.0 mg/dL (<2.0) 02/22/17 06:00 Ur Leukocyte Esterase Neg (Negative) 02/22/17 06:00 Urine WBC (Auto) 4.0 /HPF (0.0-6.0) 02/22/17 06:00 Urine RBC (Auto) 3.0 /HPF (0.0-6.0) 02/22/17 06:00 U Epithel Cells (Auto) < 1.0 /HPF (0-13.0) 02/22/17 06:00 Urine Bacteria (Auto) 1+ /HPF (Negative) 02/22/17 06:00 Urine Mucus 2+ /HPF 02/22/17 06:00 Salicylates < 0.3 mg/dL (2.8-20.0) L 02/22/17 05:15 Urine Opiates Screen Presumptive negative 02/22/17 06:00 Urine Methadone Screen Presumptive negative 02/22/17 06:00 Acetaminophen < 15.0 ug/mL (10.0-30.0) 02/22/17 05:15 Ur Barbiturates Screen Presumptive negative 02/22/17 06:00 Ur Phencyclidine Scrn Presumptive negative 02/22/17 06:00 Ur Amphetamines Screen Presumptive negative 02/22/17 06:00 U Benzodiazepines Scrn Presumptive negative 02/22/17 06:00 Urine Cocaine Screen Presumptive negative 02/22/17 06:00 U Marijuana (THC) Screen Presumptive negative 02/22/17 06:00 Drugs of Abuse Note Disclamer 02/22/17 06:00 Plasma/Serum Alcohol < 0.01 gm% (0-0.07) 02/22/17 05:15
[2017-02-24 06:02] LABS: Hematocrit 45.9 % (30.3-42.9); Hemoglobin 14.9 gm/dl (10.1-14.3); Mean Corpuscular HGB Conc 32 % (30-34); Mean Corpuscular Hemoglobin 30 pg (28-32); Mean Corpuscular Volume 93 fl (79-97); Platelet Count 231 K/mm3 (140-440); Red Blood Count 4.95 M/mm3 (3.65-5.03); Red Cell Distribution Width 14.8 % (13.2-15.2); White Blood Count 3.9 K/mm3 (4.5-11.0)
[2017-02-24 07:14] LABS: Basophils % (Manual) 0 % (0.0-1.8); Blastocytes % (Manual) 0 %
[2017-02-24 07:15] LABS: Anisocytosis 1+; Diff Status Complete; Elliptocytes Few; Hypersegmented Neutrophils Rare
--- NOTE | 2017-02-24 07:58 | Discharge Summary ---
<LUDWIG AGUILERA - Last Filed: 02/24/17 15:49> Providers - Providers Date of Admission: 02/22/17 08:44 Date of discharge: 02/24/17 Attending physician: YOSVANY HESS MD 02/22/17 10:05 Consult to Case Management [CONS] Routine Services Needed at Discharge: Contact Acid Plant Operator Helper Notified:: YES Primary care physician: CHIMNEY CONSTRUCTION SUPERVISOR Hospitalization Condition: Stable Hospital course: Patient is a 86 year old -[place] with past medical history hypertension , Alzheimer's, arthritis, and breast cancer who presents to the emergency department by EMS for altered mental status. Normal CT of the head, CXR WNL. Patient was diagnosed with acute encephalopathy, accelerated hypertension and hypokalemia. Patient was treated with supplemental potassium, IV fluid and antihypertensive medication. Patient altered mental status was most likely due to progressively worsening Alzheimer's. He is being discharged on oral antihypertensive medication. Patient clinically improved and stable for discharge. Patient discharge to retirement. Discharge Diagnosed Acute encephalopathy due to progressively worsening Alzheimer's. Accelerated hypertension Hypokalemia SNF placement Disposition: DC- TO HOME OR SELFCARE Core Measure Documentation - Palliative Care Palliative Care/ Comfort Measures: Not Applicable - Core Measures Any of the following diagnoses?: none Exam - Constitutional Vitals: Temp Pulse Resp BP Pulse Ox 98.5 F 89 20 102/56 95 02/23/17 22:00 02/23/17 22:00 02/23/17 22:00 02/23/17 22:00 02/24/17 07:31 General appearance: Present: no acute distress, other (alert and oriented to person, place ) - EENT Eyes: Present: PERRL ENT: hearing intact - Neck Neck: Present: supple - Respiratory Respiratory effort: normal Respiratory: bilateral: CTA - Cardiovascular Heart rate: 64 Rhythm: regular Heart Sounds: Present: S1 & S2 - Extremities Extremities: no ischemia Peripheral Pulses: within normal limits - Abdominal General gastrointestinal: Present: soft, non-tender Female genitourinary: Present: deferred - Rectal Rectal Exam: deferred - Integumentary Integumentary: Present: clear, warm, dry - Musculoskeletal Musculoskeletal: strength equal bilaterally - Psychiatric Psychiatric: appropriate mood/affect - Neurologic Neurologic: CNII-XII intact - Allied Health Allied health notes reviewed: nursing Plan Activity: fall precautions Weight Bearing Status: Weight Bear as Tolerated Diet: low fat, low cholesterol, low salt Follow up with: PRIMARY CARE, [Primary Care Provider] - 3-5 Days Prescriptions: Lisinopril [Zestril TAB] 20 mg PO QDAY #60 tablet <YOSVANY HESS - Last Filed: 02/24/17 16:30> Providers - Providers Date of Admission: 02/22/17 08:44 Attending physician: YOSVANY HESS MD 02/22/17 10:05 Consult to Case Management [CONS] Routine Services Needed at Discharge: Contact Acid Plant Operator Helper Notified:: YES Primary care physician: CHIMNEY CONSTRUCTION SUPERVISOR Hospitalization Reason for admission: [facility] Hospital course: I saw and evaluated the patient. I agree with the findings and the plan of care as documented in the Nurse Practitioner's~note, with the following corrections and additions. Patient clinically improved. recommend follow with Psych outpatient. Time spent for discharge: 35 Exam - Constitutional Vitals: Temp Pulse Resp BP Pulse Ox 97.8 F 64 18 141/75 100 02/24/17 10:00 02/24/17 10:00 02/24/17 10:00 02/24/17 10:00 02/24/17 10:00
[2017-02-24] MEDS: LOVENOX SUB-Q SCH (09:21)
[2017-02-24] MEDS: ZESTRIL PO SCH (09:21)
[2017-02-24 22:20] VITALS: BP 77/39
== END 2017-02-24 20:30 | disposition home or self-care (01) | DRG 56 ==
LOC: ED 04:41 → CC2 08:44
PROVIDERS: ADMIT Internal Medicine; ATTEND Internal Medicine
DX: G30.9 Alzheimer's disease, unspecified (principal); G93.40 Encephalopathy, unspecified; F02.80 Dementia in other diseases classified elsewhere, unspecified severity, without behavioral disturbance, psychotic disturbance, mood disturbance, and anxiety; I10 Essential (primary) hypertension; E87.6 Hypokalemia; I49.3 Ventricular premature depolarization; I35.0 Nonrheumatic aortic (valve) stenosis; Z85.3 Personal history of malignant neoplasm of breast
CPT/HCPCS: 36415; 51701; 70450; 71010; 80048; 80053; 80307; 80320; 81001; 82140; 82803; 82962; 83735; 84443; 85007; 85025; 93005; 93010; 94760; 96372; 96374; G0480; J0360; J1650; J3486; J7030